=== PATIENT | male | born 1995 | race Caucasian/White ===

== ENCOUNTER 2018-02-23 09:48 | Emergency (ER) | payer OTHER ==
[2018-02-23] MEDS ORDERED: NS 0.9% 1000 ML* 2,000 ML IV ONE (10:15)
[2018-02-23] MEDS ORDERED: diPHENhydraMINE IV* 50 MG/ML 1 ml VIAL (BENADRYL) IV ONE (10:15)
--- NOTE | 2018-02-23 10:21 | ED ---
Complex/Multi-Sys Presentation - HPI Summary HPI Summary: Patient is a 22 y/o M presenting to ED with complaints of midline abdominal pain above the umbilicus, rash from lower abdomen down to upper thighs including the genitalia, N/V, diaphoresis, weakness and dizziness onsetting this morning. Provider in room at 1002, patient's father is present in the room. Patient states that he woke up this morning at 0530 with midline abdominal pain above the umbilicus. He describes the pain as a pressure/ discomfort. Patient states that he took 3 liquid Advil pills and drank 1/2 bottle of tea. 5-10 minutes afterwards, he states that he began to feel nauseous and started vomiting 7-8 times in the span of 5 minutes. After this bout of vomiting, he states that he pain began to resolve and he has had no vomiting since. Slight nausea is still reported. However, the patient also notes that he had been feeling pruritic since he woke up. He looked in the mirror after his episodes of vomiting and noticed that he had developed a rash from lower abdomen down to upper thighs including the genitalia. On triage, it is reported that patient had a brief 30 second episode of weakness and dizziness at this time as well. Patient also states that he might have a slight rash in his haynes and behind his neck. Patient states that he did not notice any redness initially upon waking up. Father of patient states that the patient' s skin color is typically reddish but does note the rash at lower abd/upper thighs is new. Patient also reports swelling of hands but notes swelling has receded to just his fingertips. He reports that he has been diaphoretic since this morning. He denies SOB, chest pain, and wheezing but notes that he thought he was slightly tachypneic. Patient is unsure if his voice was hoarse. He also notes that his vision was blurry for ~30 seconds when he woke up. He reports one episode of similar abdominal pain but notes that he "slept it off". No PMHx reported at this time. He denies allergies to medicine. Father reports pelvic surgery at 6 months of age. Father also notes that son takes "a lot of Advil". FMHx of diabetes, father, mother. Maternal grandmother of stomach cancer. Paternal grandfather had bladder cancer. Patient denies smoking cigarettes, drinks alcohol rarely, no substance usage reported. 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 On triage, pain is denied. Home medications and allergies are reviewed. Allergies Allergy/AdvReac Type Severity Reaction Status Date / Time No Known Allergies Allergy Verified 02/23/18 09:59 - History Of Current Complaint Chief Complaint: EDWeakness Time Seen by Provider: 02/23/18 10:02 Hx Obtained From: Patient Onset/Duration: Sudden Onset, Lasting Minutes - vomiting for 5 minutes, Still Present - rash, fingertips swelling, diaphoresis, Resolved - abdominal pain, vomiting, dizziness, weakness, blurry vision Timing: Constant - rash, fingertips swelling, diaphoresis, Intermittent, Lasting :, Seconds - dizziness, weakness, blurry vision, Minutes - abdominal pain, vomiting Severity Currently: None Character: Pressure Aggravating Factor(s): nothing Alleviating Factor(s): nothing Associated Signs And Symptoms: Positive: Dizziness, Weakness, Edema - swelling of fingertips, Nausea, Vomiting, Abdominal Pain, Other - rash, blurry vision, tachypneic. Negative: SOB, Wheezing, Chest Pain - Allergies/Home Medications Allergies/Adverse Reactions: Allergies Allergy/AdvReac Type Severity Reaction Status Date / Time No Known Allergies Allergy Verified 02/23/18 09:59 PMH/Surg Hx/FS Hx/Imm Hx Sensory History: Denies: Hx Legally Blind, Hx Deafness Opthamlomology History: Denies: Hx Legally Blind EENT History: Denies: Hx Deafness - Surgical History Surgery Procedure, Year, and Place: PELVIC SURGERY AT 6 MONTHS OF AGE Infectious Disease History: No Infectious Disease History: Denies: Traveled Outside the [place] in Last 30 Days - Family History Known Family History: Positive: Diabetes, Other - PATERNAL GRANDFATHER BLADDER CA, MATERNAL GRANDMOTHER STOMACH CA - Social History Occupation: Student Alcohol Use: Rare Substance Use Type: Reports: None Smoking Status (MU): Never Smoked Tobacco Review of Systems Positive: Skin Diaphoresis, Other - POSITIVE - WEAKNESS Positive: Blurred Vision - 30 SECONDS Negative: Chest Pain Respiratory: Other - NEGATIVE - WHEEZING; POSITIVE - TACHYPNEIC Negative: Shortness Of Breath Positive: Abdominal Pain, Vomiting, Nausea Positive: Edema - FINGERTIPS Positive: Rash - rash from lower abdomen down to upper thighs including the genitalia Neurological: Other - POSITIVE - DIZZINESS All Other Systems Reviewed And Are Negative: Yes Physical Exam - Summary Physical Exam Summary: Appearance: Well-appearing, no pain distress, morbidly obese, diaphoretic Skin: Warm, color reflects adequate perfusion, dry; below umbilicus to top of thighs including genitalia, uticaria is noted Head: Normal Head/Face inspection, atraumatic Eyes: Conjunctiva clear ENT: Normal inspection, pharynx is clear, no swelling Neck: Supple, no nodes, no JVD Respiratory: Lungs clear, normal breath sounds, no respiratory distress Cardio: RRR, No murmur, pulses normal, brisk capillary refill Abdomen: Soft, nontender, non-distended Bowel sounds: Present Musculoskeletal: Strength Intact/ROM intact, no calf tenderness, no edema. Psychological: Normal Neuro: Alert, muscle tone normal, no focal deficit Triage Information Reviewed: Yes Vital Signs On Initial Exam: Initial Vitals Temp Pulse Resp BP Pulse Ox 96.9 F 119 15 122/69 98 02/23/18 09:53 02/23/18 09:53 02/23/18 09:53 02/23/18 09:53 02/23/18 09:53 Vital Signs Reviewed: Yes Diagnostics - Vital Signs Vital Signs Temp Pulse Resp BP Pulse Ox 02/23/18 09:53 96.9 F 119 15 122/69 98 - Laboratory Result Diagrams: 02/23/18 10:35 02/23/18 10:35 Lab Statement: Any lab studies that have been ordered have been reviewed, and results considered in the medical decision making process. - EKG 1012 Cardiac Rate: Tachycardia - rate of 110 BPM EKG Rhythm: Sinus Tachycardia EKG Comparison: Other - no priors to compare Summary of EKG Findings: EKG showed sinus tachycardia with rate of 110 BPM, nl AVIVCT, nl QTc, nl axis, no acute changes, no priors to compare. Re-Evaluation - Re-Evaluation First Eval Re-Evaluation Time: 11:03 Change: Unchanged Comment: At this time, patient's mother had arrived and is present in the room. Mother reports that patient has had a period of 9 months of similar uticaria when he was in 4th or 5th grade Mother claims that patient was itching daily, notes that lips, eyes would swell. She notes that uticaria would move around patient's body. Afterwards, Sx eventually resolved by themselves and he has not had an episode since. Allergies testing was also done at this point and mother reports that patient has an allergy to wheat and grass. Mother notes that he was more severely allergic to grass. Franky Henry is PCP. They note new furniture in the home, but otherwise no new objects reported to be present in patient's environment. Pharnyx is clear on recheck, Uticaria is still present in the same area, voice is not hoarse. Second Eval Re-Evaluation Time: 12:35 Change: Improved Comment: Redness is greatly decreased, no SOB, no scratchy throat, normal voice , patient is agreeable with discharge. Complex Multi-Symp Course/Dx Course Of Treatment: Patient is a 22 y/o M presenting to ED with complaints of midline abdominal pain above the umbilicus, rash from lower abdomen down to upper thighs including the genitalia, N/V, diaphoresis, weakness and dizziness onsetting this morning. Patient states that he woke up this morning at 0530 with midline abdominal pain above the umbilicus. He describes the pain as a pressure/discomfort. Patient states that he took 3 liquid Advil pills and drank 1/2 bottle of tea. 5-10 minutes afterwards, he states that he began to feel nauseous and started vomiting 7-8 times in the span of 5 minutes. After this bout of vomiting, he states that he pain began to resolve and he has had no vomiting since. Slight nausea is still reported. However, the patient also notes that he had been feeling pruritic since he woke up. He looked in the mirror after his episodes of vomiting and noticed that he had developed a rash from lower abdomen down to upper thighs including the genitalia. On triage, it is reported that patient had a brief 30 second episode of weakness and dizziness at this time as well. Patient states that he did not notice any redness initially upon waking up. Patient also reports swelling of hands but notes swelling has receded to just his fingertips. He reports that he has been diaphoretic since this morning. He denies SOB, chest pain, and wheezing but notes that he thought he was slightly tachypneic. Patient is unsure if his voice was hoarse. No PMHx reported at this time. On physical exam, patient is noted to be morbidly obese, diaphoretic, but in no pain distress. Abdomen is soft, nontender, nondistended. Below umbilicus to top of thighs including genitalia, uticaria is noted. Lungs are clear. Pharynx is clear, no swelling noted. EKG showed sinus tachycardia with rate of 110 BPM, nl AVIVCT, nl QTc, nl axis, no acute changes, no priors to compare. 1103 - Mother reports that patient has had a period of 9 months of similar uticaria when he was in 4th or 5th grade Mother claims that patient was itching daily, notes that lips, eyes would swell. She notes that uticaria would move around patient's body. Afterwards, Sx eventually resolved by themselves and he has not had an episode since. Allergies testing was also done at this point and mother reports that patient has an allergy to wheat and grass. Mother notes that he was more severely allergic to grass. Franky Henry is PCP. They note new furniture in the home, but otherwise no new objects reported to be present in patient's environment. Pharnyx is clear on recheck, Uticaria is still present in the same area, voice is not hoarse. Labs showed WBC 18.2, RBC 5.63, absolute neuts 16.6 , absolute lymphs 0.9, BUN/creatinine ratio 20.7, glucose 228, AST 55, ALT 93, CRP 12.78, amylase 17, lipase < 10. UA was negative. UA tox was negative. During ED course, patient was given fluids, Zofran 4 mg IV ED ONCE ONE, Solu- Medrol 125 mg IV ED ONCE ONE, Pepcid 40 mg IV SLOW PU ED ONCE ONE, Benadryl 50 mg PO ED ONCE ONE. 1203 - Redness is greatly decreased, no SOB, no scratchy throat, normal voice, patient is agreeable with discharge. He was instructed to follow up with PCP Franky Henry. Dx of allergic reaction. - Diagnoses Provider Diagnoses: Allergic reaction Discharge - Sign-Out/Discharge Documenting (check all that apply): Patient Departure - discharge - Discharge Plan Condition: Stable Disposition: HOME Prescriptions: EPINEPHrine [Epipen 2-Olivier] 0.3 mg IM ONCE PRN #1 inj PRN Reason: anaphylaxis Famotidine TAB* [Pepcid 20 MG TAB*] 40 mg PO DAILY #10 tab predniSONE TAB* [Deltasone 20 MG TAB*] 40 mg PO DAILY #10 tab Patient Education Materials: General Allergic Reaction (ED) Referrals: Franky Henry, MEDICAL LABORATORY MANAGER [Primary Care Provider] - 2 Days Additional Instructions: You were given Benadryl 50mg orally, solumedrol 125mg IV (steroid), famotidine 40mg IV (pepcid, Histamine-2 kajal), zofran 4mg IV and IV fluids to treat your allergic reaction. You will need to continue the prednisone and famotidine once a day for 5 days as directed. You will also need to take benadryl 50mg four times a day (next dose 3pm today) for the next 48 hrs, and then as needed. You may need to re-start a daily antihistamine. You should have definite follow up with Franky Henry and he will be able to refer you to an film library clerk, which is recommended. We have also prescribed an EpiPen which you may use for an allergic emergency ( anaphylaxis) if needed. You should always call 911 after using an EpiPen. Return to the ER if you have new or worsening symptoms. - Attestation Statements Document Initiated by Scribe: Yes Documenting Scribe: KAT CRUZ Provider For Whom Grace is Documenting (Include Credential): SUBHA RICAHRDS MD Scribe Attestation: KAT Armenta , scribed for SUBHA RICHARDS MD on 02/23/18 at 1725.
[2018-02-23 10:43] LABS: ABS Basophils 0 10^3/ul (0-0.2); ABS Eosinophils 0 10^3/ul (0-0.6); ABS Lymphocytes 0.9 10^3/ul (1.0-4.8); ABS Monocytes 0.7 10^3/ul (0-0.8); ABS Neutrophils 16.6 10^3/ul (1.5-7.7); ABS Nucleated RBC 0 10^3/ul; Eosinophil % 0.1 %; Hematocrit 51 % (42-52); Hemoglobin 17.2 g/dl (14.0-18.0); Lymphocyte % 4.7 %; Mean Corpuscular HGB Conc 34 g/dl (31-36); Mean Corpuscular Hemoglobin 30 pg (27-31); Mean Corpuscular Volume 90 fL (80-94); Mean Platelet Volume 8.6 fL (7.4-10.4); Nucleated Red Blood Cells % 0; Platelet Count 323 10^3/ul (150-450); Red Blood Count 5.63 10^6/ul (4.00-5.40); Red Cell Distribution Width 13 % (10.5-15); White Blood Count 18.2 10^3/ul (3.5-10.8)
[2018-02-23 11:01] LABS: ALT 93 U/L (7-52); AST 55 U/L (13-39); Albumin 4.1 g/dL (3.2-5.2); Albumin/Globulin Ratio 1.2 (1-3); Alkaline Phosphatase 68 U/L (34-104); Amylase 17 U/L (29-103); Anion Gap 8 mmol/L (2-11); BUN/Creatinine Ratio 20.7 (8-20); Blood Urea Nitrogen 18 mg/dL (6-24); C Reactive Protein 12.78 mg/L (<8.01); CO2 Carbon Dioxide 24 mmol/L (22-32); Calcium 9.6 mg/dL (8.6-10.3); Chloride 104 mmol/L (101-111); EGFR Non-African American 109.7 (>60); Globulin 3.4 g/dL (2-4); Glucose 228 mg/dL (70-100); Potassium 4.5 mmol/L (3.5-5.0); Sodium 136 mmol/L (135-145); Total Protein 7.5 g/dL (6.4-8.9)
[2018-02-23] MEDS ORDERED: Ondansetron INJ* 2 MG/ML VIAL IV ONE (11:08)
[2018-02-23] MEDS ORDERED: methylPREDNISolone 125 MG* 2 ML VIAL IV ONE (11:08)
[2018-02-23] MEDS ORDERED: diPHENhydraMINE PO* 25 MG PO ONE (11:11)
[2018-02-23] MEDS ORDERED: Famotidine IV* 10 MG/ML 2 ML (20 mg) IV SLOW PU ONE (11:20)
[2018-02-23 12:45] VITALS: BP 117/59
[2018-02-23 13:05] LABS: Urine Appearance Cloudy; Urine Bilirubin Negative (Negative); Urine Blood Negative (Negative); Urine Color Yellow; Urine Glucose Negative (Negative); Urine Ketones Negative (Negative); Urine Nitrite Negative (Negative); Urine Protein Negative (Negative); Urine Specific Gravity 1.021 (1.010-1.030); Urine Urobilinogen Negative (Negative)
[2018-02-23 13:24] LABS: Barbiturates Urine Screen None Detected (None Detect); Benzodiazepine Urine Screen None Detected (None Detect); Urine Cannabinoids Screen None Detected (None Detect)
== END 2018-02-23 13:01 | disposition home or self-care (01) ==
LOC: ED 09:48
DX: T78.40XA Allergy, unspecified, initial encounter (principal); E66.01 Morbid (severe) obesity due to excess calories
CPT/HCPCS: 36415; 80053; 80307; 81003; 82150; 83690; 85025; 86140; 93005; 96361; 96374; 96375; 99283; A9270-GY; J2405; J2930

== ENCOUNTER 2018-04-27 16:38 | Emergency (ER) | payer OTHER ==
[2018-04-27] MEDS ORDERED: NS 0.9% 1000 ML** 2,000 ML IV ONE (17:06)
[2018-04-27] MEDS ORDERED: EPINEPHRINE 1 MG/ML 1 ML VIAL IM ONE (17:07)
[2018-04-27] MEDS ORDERED: diPHENhydraMINE IV* 50 MG/ML 1 ml VIAL (BENADRYL) IV ONE (17:07)
[2018-04-27] MEDS ORDERED: methylPREDNISolone 125 MG* 2 ML VIAL IV ONE (17:08)
[2018-04-27] MEDS ORDERED: Famotidine IV* 10 MG/ML 2 ML (20 mg) IV SLOW PU ONE (17:08)
--- NOTE | 2018-04-27 17:08 | ED ---
Allergic Reaction/Systemic - HPI Summary HPI Summary: Provider saw patient at triage. This patient is a 22 year old M presenting to [facility] with a chief complaint of an allergic reaction since 16:00 today. This is the third time in 3 months, that Dr. Craig has seen this patient for the same reaction. He has been to an team facilitator since the last visit, Dr. Remy, and had some testing, but he does not know these results yet. He took two Benadryl at 16:00 today and last ate at 08:00am. Patient reports abdominal pain, upset stomach, itchy face, itchy hands , redness under armpits, on face, in groin, on upper legs, and swollen upper lip. Pt has eliminated Advil, has watched his diet to eliminate allergens, and really does not know what might be triggering these reactions. He has an EpiPen but did not use it prior to arrival. Home Medications Medication Instructions Recorded Confirmed Type EPINEPHrine [Epipen 2-Olivier] 0.3 mg IM ONCE PRN #1 inj 02/23/18 04/06/18 Rx Famotidine TAB 40 MG(NF) [Pepcid 40 mg PO DAILY #5 tab 04/06/18 Rx TAB 40 MG(NF)] predniSONE TAB* [Deltasone 20 MG 40 mg PO DAILY #10 tab 04/06/18 Rx TAB*] - History of Current Complaint Hx Obtained From: Patient, Family/Redevelopment Specialist - Mother Onset/Duration: Sudden Onset, Started hours ago - 16:00 today, Still Present Timing: Constant Severity Initially: Mild Severity Currently: Moderate Pain Intensity: 0 Pain Scale Used: 0-10 Numeric Location: Diffuse - On redness on face, axillae, abd, groin, upper legs, swollen upper lip Character: Swelling, Hives Aggravating Factor(s): Nothing Alleviating Factor(s): Nothing Associated Signs And Symptoms: Positive: Abdominal Pain - Upset stomach, Rash, Other: - Itchy face, itchy hands, redness under the armpits, and swollen upper lip. - Related Hx Possible Reaction To: Unknown - Allergies/Home Medications Allergies/Adverse Reactions: Allergies Allergy/AdvReac Type Severity Reaction Status Date / Time No Known Allergies Allergy Verified 02/23/18 09:59 Home Medications: Home Medications Cetirizine* [ZyrTEC 10 MG TAB*] 10 mg PO BID 04/27/18 [History Confirmed ] Loratadine [Claritin] 10 mg PO BID 04/27/18 [History Confirmed 04/27/18] PMH/Surg Hx/FS Hx/Imm Hx Previously Healthy: Yes Sensory History: Denies: Hx Legally Blind, Hx Deafness Opthamlomology History: Denies: Hx Legally Blind EENT History: Denies: Hx Deafness - Surgical History Surgery Procedure, Year, and Place: PELVIC SURGERY AT 6 MONTHS OF AGE - Family History Known Family History: Positive: Diabetes, Other - PATERNAL GRANDFATHER BLADDER CA, MATERNAL GRANDMOTHER STOMACH CA - Social History Occupation: Student Lives: With Family Alcohol Use: Rare Hx Substance Use: Yes Substance Use Type: Reports: Marijuana - Occasional Hx Tobacco Use: No Smoking Status (MU): Never Smoked Tobacco Review of Systems Constitutional: Negative Eyes: Negative Positive: Other - Swollen upper lip Cardiovascular: Negative Respiratory: Negative Positive: Abdominal Pain - Upset stomach Positive: no symptoms reported Musculoskeletal: Negative Positive: Rash, Other - Itchy face, itchy hands, redness under armpits, on face , abd, groin, upper legs Neurological: Negative Psychological: Normal All Other Systems Reviewed And Are Negative: Yes Physical Exam - Summary Physical Exam Summary: Appearance: Ill-appearing, minimal abd pain distress, obese Skin: Warm. Diffuse redness and hives in face, armpits, under pannus, and upper legs. Minimal lip swelling with loss of lip creasing on his upper lip. Head: Normal Head/Face inspection, atraumatic Eyes: Conjunctiva clear ENT: Normal inspection Neck: Supple, no nodes, no JVD Respiratory: Lungs clear, normal breath sounds, no respiratory distress Cardio: RRR, No murmur, pulses normal, brisk capillary refill Abdomen: Soft, nontender Bowel sounds: Present Musculoskeletal: Strength Intact/ROM intact, no calf tenderness, no edema. Psychological: Normal Neuro: Alert, muscle tone normal, no focal deficit Triage Information Reviewed: Yes Vital Signs On Initial Exam: Initial Vitals Temp Pulse Resp BP Pulse Ox 98.7 F 100 18 188/102 99 04/27/18 16:39 04/27/18 16:39 04/27/18 16:39 04/27/18 16:39 04/27/18 16:39 Vital Signs Reviewed: Yes Diagnostics - Laboratory Result Diagrams: 04/27/18 17:16 04/27/18 17:16 Lab Statement: Any lab studies that have been ordered have been reviewed, and results considered in the medical decision making process. Re-Evaluation - Re-Evaluation 1 Re-Evaluation Time: 21:44 Change: Improved Comment: redness has decreased throughout. Pt has not vomited. Feels well. Wants to go home. Allergic Reaction Course/Dx - Course Course Of Treatment: A 22 y/o male presents in [facility] for recurrent anaphylaxis with hives to unknown allergen. Pt was given Epi 0.3mg IM, Pepcid 40mg IV, Solumedrol 125mg IV, Benadryl 50mg IV and 2 liters of NS with resolution of his symptoms. Normal WBC. Normal chemistries. Elevated glucose non-fasting of 163. Elevated ALT 67, normal is 52. (ALT was elevated to this range on prior visits). Elevated CRP 8.41. Patient was discharged with a dx of anaphylactic reaction. Pt medications reviewed this visit. Nurses note reviewed. Allergies noted. Pt is advised to keep his f/u appt with his team facilitator, and to carry Epipen. - Diagnoses Differential Diagnosis/HQI/PQRI: Positive: Anaphylaxis, Angioedema, Local Allergic Reaction Provider Diagnoses: Anaphylactic reaction - Critical Care Time Critical Care Time: 30-74 min - 30mins Discharge - Sign-Out/Discharge Documenting (check all that apply): Patient Departure - D/C home Patient Received Moderate/Deep Sedation with Procedure: No - Discharge Plan Condition: Stable Disposition: HOME Patient Education Materials: Anaphylaxis (ED) Referrals: Abisai Remy MD [Medical Doctor] - As Soon As Possible Franky Henry NP [Primary Care Provider] - 2 Days Additional Instructions: You were given Benadryl 50mg IV, SoluMedrol 125mg IV, Famotidine 40mg IV and epinephrine 0.3mg IM for another allergic reaction. Your lab tests will print with these discharge instructions. Your WBC count was normal, your CRP ( measure of infection and inflammation was minimally elevated). Your ALT liver enzyme was elevated again, similarly to the past. Your glucose nonfasting was 163 (slightly elevated). You should keep your appointment with Dr. Remy. Return to the ER if you have any new or worsening symptoms. - Billing Disposition and Condition Condition: STABLE Disposition: Home - Attestation Statements Document Initiated by Scribe: Yes Documenting Scribe: Mick Hdz Provider For Whom Lupeibe is Documenting (Include Credential): Keshia Craig MD Scribe Attestation: Mick Armenta, scribed for Keshia Craig MD on 05/01/18 at 2101. Scribe Documentation Reviewed: Yes Provider Attestation: The documentation as recorded by the Mick bernal accurately reflects the service I personally performed and the decisions made by me, Keshia Craig MD Status of Scribe Document: Viewed
[2018-04-27 17:27] LABS: ABS Basophils 0.1 10^3/ul (0-0.2); ABS Eosinophils 0.1 10^3/ul (0-0.6); ABS Lymphocytes 1.2 10^3/ul (1.0-4.8); ABS Monocytes 0.5 10^3/ul (0-0.8); ABS Neutrophils 8.3 10^3/ul (1.5-7.7); ABS Nucleated RBC 0 10^3/ul; Eosinophil % 0.6 %; Hematocrit 43 % (42-52); Hemoglobin 14.5 g/dl (14.0-18.0); Lymphocyte % 11.8 %; Mean Corpuscular HGB Conc 34 g/dl (31-36); Mean Corpuscular Hemoglobin 31 pg (27-31); Mean Corpuscular Volume 90 fL (80-94); Mean Platelet Volume 8.6 fL (7.4-10.4); Nucleated Red Blood Cells % 0; Platelet Count 289 10^3/ul (150-450); Red Blood Count 4.74 10^6/ul (4.00-5.40); Red Cell Distribution Width 14 % (10.5-15); White Blood Count 10.1 10^3/ul (3.5-10.8)
[2018-04-27 17:43] LABS: Albumin 4.4 g/dL (3.2-5.2); Albumin/Globulin Ratio 1.6 (1-3); BUN/Creatinine Ratio 13.8 (8-20); C Reactive Protein 8.41 mg/L (<8.01); Calcium 9.4 mg/dL (8.6-10.3); EGFR African American 132.8 (>60); EGFR Non-African American 109.7 (>60); Globulin 2.7 g/dL (2-4); Potassium 3.8 mmol/L (3.5-5.0); Total Bilirubin 0.6 mg/dL (0.2-1.0); Total Protein 7.1 g/dL (6.4-8.9)
[2018-04-27 21:57] VITALS: BP 131/74
== END 2018-04-27 21:59 | disposition home or self-care (01) ==
LOC: ED 16:38
DX: T78.2XXA Anaphylactic shock, unspecified, initial encounter (principal); T78.40XA Allergy, unspecified, initial encounter; X58.XXXA Exposure to other specified factors, initial encounter; R21 Rash and other nonspecific skin eruption
CPT/HCPCS: 36415; 80053; 83605; 85025; 86140; 96361; 96372; 96374; 96375; 99284; J1200; J2930

== ENCOUNTER 2018-05-10 23:43 | Emergency (ER) | payer OTHER ==
[2018-05-10] MEDS ORDERED: EPINEPHRINE 1 MG/ML 1 ML VIAL IM ONE (23:55)
[2018-05-10] MEDS ORDERED: diPHENhydraMINE PO* 50 MG PO ONE (23:55)
[2018-05-10] MEDS ORDERED: Famotidine TAB* 20 MG PO ONE (23:55)
[2018-05-10] MEDS ORDERED: predniSONE TAB* 20 MG PO ONE (23:55)
--- NOTE | 2018-05-10 23:56 | ED ---
Allergic Reaction/Systemic - HPI Summary HPI Summary: Pt is a 22 y/o male who presents to the ED c/o allergic reaction. Around 23:30 tonight he suddenly began to have a diffuse pruritic rash, swelling of his hands and feet, and dry mouth. Pt denies any wheezing or swelling of his tongue/ lips/throat. As per father, pt has been to the ED 3 other times since February 2018 for an allergic reaction. [facility] has been to [facility] and all testing for common food and mold allergies have been negative. He denies any new medications , foods, soaps, or detergents. Pt states he took Tylenol PM tonight for a headache, however he has taken this medication before. He has an Epipen that he denies using tonight. He denies any marijuana use, however his chart states otherwise. - History of Current Complaint Chief Complaint: EDAllergicReaction Hx Obtained From: Patient, Family/Sales Representative [employer] - Father Onset/Duration: Gradual Onset, Started hours ago - Around 23:30 tonight, Still Present Timing: Constant Severity Currently: None Pain Intensity: 0 Pain Scale Used: 0-10 Numeric Location: Diffuse Character: Pruritus, Hives Aggravating Factor(s): Other - Unknown Associated Signs And Symptoms: Positive: Rash. Negative: Cough Wheezing, Throat Tightening - Allergies/Home Medications Allergies/Adverse Reactions: Allergies Allergy/AdvReac Type Severity Reaction Status Date / Time No Known Allergies Allergy Verified 05/10/18 23:47 PMH/Surg Hx/FS Hx/Imm Hx Sensory History: Denies: Hx Legally Blind, Hx Deafness Opthamlomology History: Denies: Hx Legally Blind - Surgical History Surgery Procedure, Year, and Place: PELVIC SURGERY AT 6 MONTHS OF AGE Infectious Disease History: No Infectious Disease History: Denies: Traveled Outside the [place] in Last 30 Days - Family History Known Family History: Positive: Diabetes, Other - PATERNAL GRANDFATHER BLADDER CA, MATERNAL GRANDMOTHER STOMACH CA - Social History Alcohol Use: Rare Hx Substance Use: Yes Substance Use Type: Reports: Marijuana - Occasional Hx Tobacco Use: No Smoking Status (MU): Never Smoked Tobacco Review of Systems Positive: Other - mouth dry, NEGATIVE: tongue, lip, throat swelling Negative: Other - wheeze Positive: Edema - hands/feet Positive: Rash - diffuse, pruritic All Other Systems Reviewed And Are Negative: Yes Physical Exam - Summary Physical Exam Summary: Appearance: well appearing, no pain distress Skin: warm, dry, widespread erythema Head/face: normal Eyes: EOMI, RAMSEY ENT: mucous membranes moist, no edema of upper airway Neck: supple, non-tender Respiratory: CTA, breath sounds present, no wheezing Cardiovascular: tachycardic but regular rhythm, pulses symmetrical Abdomen: non-tender, soft Bowel Sounds: present Musculoskeletal: normal, strength/ROM intact Neuro: normal, sensory motor intact, A&Ox3 Triage Information Reviewed: Yes Vital Signs On Initial Exam: Initial Vitals Temp Pulse Resp BP Pulse Ox 98.8 F 126 20 122/81 100 05/10/18 23:46 05/10/18 23:46 05/10/18 23:46 05/10/18 23:46 05/10/18 23:46 Vital Signs Reviewed: Yes Diagnostics - Vital Signs Vital Signs Temp Pulse Resp BP Pulse Ox 05/10/18 23:46 98.8 F 126 20 122/81 100 - Laboratory Lab Statement: Any lab studies that have been ordered have been reviewed, and results considered in the medical decision making process. Re-Evaluation - Re-Evaluation First Eval Re-Evaluation Time: 00:45 Change: Improved Comment: Pt still feels tingly, but his rash is fading after getting Benadryl, Epi, Pepcid, and Deltasone. Allergic Reaction Course/Dx - Course Course Of Treatment: Nurse's notes reviewed. Patient with recurring allergic reactions to unknown allergen. He has been seen [facility] outpatient and has been tested. He does have an EpiPen but did not give it to himself tonight. He was treated here with H1, H2 blockers and epinephrine as well as steroid with improvement. He'll continue on H2 kajal and steroid for the next several days. He will follow-up with [facility]. - Diagnoses Differential Diagnosis/HQI/PQRI: Positive: Anaphylaxis, Angioedema, Bronchospasm , Local Allergic Reaction Provider Diagnoses: Allergic reaction Discharge - Sign-Out/Discharge Documenting (check all that apply): Patient Departure - Discharge Patient Received Moderate/Deep Sedation with Procedure: No - Discharge Plan Condition: Improved Disposition: HOME Prescriptions: Famotidine [Heartburn Prevention] 20 mg PO BID PRN #30 tablet PRN Reason: Allergy Symptoms predniSONE TAB* [Deltasone TAB*] 50 mg PO DAILY #3 tab Patient Education Materials: General Allergic Reaction (ED) Referrals: Franky Henry, JOAO [Primary Care Provider] - Additional Instructions: Call Sunday morning to schedule follow-up with your [facility]. Journal all medications, [id number] medications or food products that you, contact with. Give herself an EpiPen with severe allergy symptoms. Return if worse, new symptoms or other concerns. - Billing Disposition and Condition Condition: IMPROVED Disposition: Home - Attestation Statements Document Initiated by Grace: Yes Documenting Scribe: Princess Cole Provider For Whom Grace is Documenting (Include Credential): John Miller MD Scribe Attestation: Princess Armenta, scribed for John Miller MD on 05/11/18 at 0148. Scribe Documentation Reviewed: Yes Provider Attestation: The documentation as recorded by the Princess bernal accurately reflects the service I personally performed and the decisions made by , John Miller MD Status of Scribe Document: Viewed
[2018-05-11 02:00] VITALS: BP 118/63
== END 2018-05-11 01:15 | disposition home or self-care (01) ==
LOC: ED 23:43
DX: T78.40XA Allergy, unspecified, initial encounter (principal); R21 Rash and other nonspecific skin eruption; R60.9 Edema, unspecified; X58.XXXA Exposure to other specified factors, initial encounter
CPT/HCPCS: 96372; 99282; A9270-GY; J7512